=== PATIENT | female | born 2000 | race Caucasian/White ===

== ENCOUNTER 2020-05-01 23:10 | Emergency (ER) | payer SELFPAY ==
[2020-05-01 23:32] VITALS: BP 103/64; PULSE 75; RESP 14; TEMP 36.7; O2SAT 98; BMI 22.4
[2020-05-01 23:42] LABS: Basophils # 0.1 10^3/uL (0.0-0.1); Basophils % 0.4 %; Eosinophils # 0.1 10^3/uL (0.0-0.8); Eosinophils % 0.5 %; Hematocrit 40.1 % (37.0-47.0); Lymphocytes # 3.8 10^3/uL (0.8-4.8); Lymphocytes % 25.8 %; Mean Corpuscular HGB Conc 32.4 g/dL (30.0-36.0); Mean Corpuscular Hemoglobin 29.5 pg (28.0-34.0); Mean Corpuscular Volume 91.1 fL (81-99); Mean Platelet Volume 8.8 fL (7.4-10.4); Monocytes # 1.6 10^3/uL (0.2-0.9); Monocytes % 10.9 %; Neutrophils % 62.1 %; Nucleated Red Blood Cells % 0 %; Platelet Count 372 10^3/cmm (130-400); Red Cell Distribution Width 12.2 % (12.1-15.1); White Blood Count 14.7 10^3/uL (4.0-10.0)
[2020-05-01 23:56] LABS: Alanine Aminotransferase 14 U/L (0-33); Albumin Level 4.9 g/dL (3.5-5.2); Alkaline Phosphatase 76 IU/L (35-105); Anion Gap 16.4 (5-19); Aspartate Amino Transferase 17 U/L (0-32); Blood Urea Nitrogen 14 mg/dL (6-20); Calcium 9.9 mg/dL (8.5-10.5); Carbon Dioxide 26 mmol/L (22-29); Chloride 100 mmol/L (98-107); Globulin 3.4 g/dL (1.3-4.6); Glomerular Filtration Rate 90.5 mL/min (90-130); Glucose 96 mg/dL (65-115); Lipase 28 U/L (13-60); Osmolality Calculated 282 mOsm/kg (285-295); Potassium 4.4 mmol/L (3.5-5.1); Sodium 138 mmol/L (136-145); Total Protein 8.3 g/dL (6.6-8.7)
--- NOTE | 2020-05-02 02:01 | CTR_ITS ---
PROCEDURE INFORMATION: Exam: CT Abdomen And Pelvis With Contrast Exam date and time: 05/02/2020 2:02 AM Age: 20 years old Clinical indication: Abdominal pain; Localized; Right lower quadrant (rlq); Prior surgery; Surgery type: Csection; Patient HX: Rlq pain x 3 days. Elevated wbc. ; Additional info: Rq pain TECHNIQUE: Imaging protocol: Computed tomography of the abdomen and pelvis with intravenous contrast. Radiation optimization: All CT scans at this facility use at least one of these dose optimization techniques: automated exposure control; mA and/or kV adjustment per patient size (includes targeted exams where dose is matched to clinical indication); or iterative reconstruction. Contrast material: OMNI 300; Contrast volume: 95 ml; Contrast route: INTRAVENOUS (IV) ADDITIONAL STUDY INFORMATION: Total DLP (mGy-cm): 555.2 COMPARISON: No relevant prior studies available. FINDINGS: In anterior aspect right kidney there is small area of relatively low density and this is worrisome for inflammation/infection, please correlate clinically. There appears to be fullness of the cervix and ovaries, as well as small amount free fluid; findings may be due to menses. Urinary bladder is nearly collapsed. There is elongated left hepatic lobe, a developmental variant. Gallbladder is very contracted. Spleen, pancreas, left kidney, and adrenal glands appear grossly unremarkable. There is small hiatal hernia. Structure felt to represent the appendix appears grossly unremarkable. Bowel loops do not appear significantly dilated. Abdominal aorta does not appear dilated. Visualized lung bases demonstrate no significant opacification. Examination is somewhat limited without enteric contrast material. CT/CT abdomen pelvis w con* [id number] IMPRESSION: In anterior aspect right kidney there is small area of relatively low density and this is worrisome for inflammation/infection, please correlate clinically. There appears to be fullness of the cervix and ovaries, as well as small amount free fluid; findings may be due to menses. Urinary bladder is nearly collapsed. There is small hiatal hernia. Radiation Dose CTDIVOL = (mGy): DLP = 555.2 (mGy-cm)
--- NOTE | 2020-05-02 02:10 | ED_ITS ---
HPI - Abdominal Pain General: Chief Complaint: Abdominal Pain Stated Complaint: side pain Time Seen by Provider: 05/02/20 01:53 History of Present Illness: HPI narrative: Patient complains about right-sided abdominal pain for 2 3 days. Denies any nausea vomiting bladder or bowel problems pain is been constant has not improved slightly worse. Denies any fever chills. Is been normal MD elicited complaint: abdominal pain Onset (ago): day(s) Pain Consistency: constant Location: RUQ Severity: moderate Quality: aching Radiation: none Migration to: no migration Exacerbating factors: nothing Relieving factors: nothing Associated Symptoms: Denies chills, fever(s), nausea and vomiting Review of Systems Const: Denies: fever(s), chills or body aches Eyes: Denies: change in vision or blurry vision ENMT: Denies: throat pain or nasal congestion Card: Denies: chest pain or dyspnea on exertion Resp: Denies: dyspnea, productive cough or non-productive cough GI: Reports: abdominal pain; Denies: nausea or vomiting Musc: Denies: extremity pain Skin/Breast: Denies: rash Neuro: Denies: headache(s) Psych: Denies: anxiety or depression Sid/Lymph: Denies: easy bruising PFSH ED PFSH: Medical History (Updated 04/10/20 @ 11:08 by Cassandra Iverson APN, ODETTE) Anxiety with depression stopped meds in 2018 No pertinent past medical history neghx: htn,dm,thyroid,dvt/pe Surgical History (Updated 04/10/20 @ 10:51 by Cassandra Iverson APN, ODETTE) H/O section (01/27/19) Pre-E at 36 weeks--delivered in [place] History of tonsillectomy and adenoidectomy Family History Grandmother Diabetes Grandfather Hypertension Maternal grandfather Paternal grandfather Heart disease Maternal grandfather Family/Other Diabetes Maternal aunt Maternal uncle Hypertension Maternal uncle Stroke Maternal uncle Heart disease Maternal uncle Family history of thyroid problem Maternal aunt Denies family history of Colon cancer Ovarian cancer Hyperlipidemia Breast cancer Uterine cancer Social History Additional social history: - Tobacco use: Denies Alcohol use: Denies Drug use: Denies Physical Exam Const: COMMON NORMALS: no acute distress, average body habitus and patient oriented x3 HENMT: COMMON NORMALS: normocephalic HEAD & SCALP: normal to inspection and normocephalic FACE & SINUS: normal facial exam Eye: COMMON NORMALS: conjunctivae normal GENERAL EYE: appearance normal, both eyes and all related structures CONJUNCTIVA: Yes conjunctivae normal Neck/C-Spine: COMMON NORMALS: no JVD Chest: COMMONS NORMALS: normal inspection of the chest Resp: COMMON NORMALS: normal respiratory effort and clear to auscultation b ilaterally AUSCULTATION: clear to auscultation bilaterally Cardio: COMMON NORMALS: no JVD, regular rate and regular rhythm RATE: regular rate RHYTHM: regular rhythm GI: COMMON NORMALS: Normal to inspection, nondistended, normoactive bowel sounds present PALPATION: Yes Tenderness to palpation present (GI) Details: RUQ Extremity: COMMON NORMALS: normal to inspection and full ROM Neuro: COMMON NORMALS: patient oriented x3 Course Vital Signs: Vital signs: Vital Signs Temperature 98.0 F 05/01/20 23:32 Pulse Rate 75 05/01/20 23:32 Respiratory Rate 14 05/01/20 23:32 Blood Pressure 103/64 05/01/20 23:32 Pulse Oximetry 98 05/01/20 23:32 MDM - Abdominal Pain Lab Data: Labs: Lab Results 05/01/20 05/01/20 Range/Units 23:31 23:31 WBC 14.7 H (4.0-10.0) 10^3/ uL RBC 4.40 (4.1-5.3) 10^6/u L Hgb 13.0 (11.5-15.3) g/dL Hct 40.1 (37.0-47.0) % MCV 91.1 (81-99) fL MCH 29.5 (28.0-34.0) pg MCHC 32.4 (30.0-36.0) g/dL RDW 12.2 (12.1-15.1) % Plt Count 372 (130-400) 10^3/c mm MPV 8.8 (7.4-10.4) fL Neut % (Auto) 62.1 % Lymph % (Auto) 25.8 % [place] % (Auto) 10.9 % Eos % (Auto) 0.5 % Baso % (Auto) 0.4 % Neut # (Auto) 9.10 H (1.8-7.7) 10^3/u L Lymph # (Auto) 3.8 (0.8-4.8) 10^3/u L [place] # (Auto) 1.6 H (0.2-0.9) 10^3/u L Eos # (Auto) 0.1 (0.0-0.8) 10^3/u L Baso # (Auto) 0.1 (0.0-0.1) 10^3/u L Nucleated RBC % (a uto) 0 % Nucleated RBCs # 0.0 /100WBC Sodium 138 (136-145) mmol/L Potassium 4.4 (3.5-5.1) mmol/L Chloride 100 (98-107) mmol/L Carbon Dioxide 26 (22-29) mmol/L Anion Gap 16.4 (5-19) BUN 14 (6-20) mg/dL Creatinine 0.8 (0.5-0.9) mg/dL GFR Calculation 90.5 (90-130) mL/min Glucose 96 (65-115) mg/dL Calculated Osmolal ity 282 L (285-295) mOsm/k g Calcium 9.9 (8.5-10.5) mg/dL Total Bilirubin 1.0 (0.15-1.2) mg/dL AST 17 (0-32) U/L ALT 14 (0-33) U/L Alkaline Phosphata se 76 (35-105) IU/L Total Protein 8.3 (6.6-8.7) g/dL Albumin 4.9 (3.5-5.2) g/dL Globulin 3.4 (1.3-4.6) g/dL Lipase 28 (13-60) U/L Discharge Plan Discharge Prescriptions: No Action No Known Home Medications RF: 0 Coding Level of Care Code ED Presentation Designer for Chg Joseph
[2020-05-02 02:27] LABS: HCG Qualitative Urine. Negative (Negative); Urine Color Yellow (Yellow)
[2020-05-02 02:28] LABS: Add Urine Culture? Yes; Add Urine Microscopic? YES; Bacteria Urine 3+; Bilirubin Urine Neg (NEGATIVE); Blood Urine 2+ (Negative); Glucose Urine UA Norm (Normal); Ketones Urine Negative (Negative); Leukocyte Esterase Urine 2+ (Negative); Nitrate Urine Positive (Negative); Protein Urine Trace (Negative); Squamous Epithelial Cell Urine 0-4 (0-5); Urine Appearance Cloudy (CLEAR); Urobilinogen Urine Norm (Negative); WBC Urine >100 /hpf (0-5); pH Urine 5 (5-7)
[2020-05-02] MEDS: iohexol 300 mg/mL 100 mL Btl IV (02:44)
[2020-05-02] MEDS: cefTRIAXone 1,000 mg SDV 1000 MG IM (03:06)
[2020-05-02 03:25] VITALS: BP 99/61
== END 2020-05-02 03:35 | disposition home or self-care (01) ==
PROVIDERS: Emergency Medicine; Emergency Provider Nurse Practitioner Family
DX: R10.9 Unspecified abdominal pain (principal)
CPT/HCPCS: 12345; 36415; 74177; 80053; 81001; 81003; 81025; 83690; 85025; 87077; 87086; 87186; 96372; 99281; 99283; J0696; Q9967

== ENCOUNTER 2020-08-12 00:29 | Emergency (ER) | payer SELFPAY ==
[2020-08-12 00:41] VITALS: BP 117/73; PULSE 95; RESP 18; TEMP 36.8; O2SAT 98
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
[2020-08-12] MEDS: acetaminophen 325 mg Tablet 650 MG PO (02:35)
[2020-08-12 03:12] VITALS: BP 120/70; PULSE 82; RESP 18; O2SAT 98
[2020-08-12 03:14] VITALS: BP 120/70; PULSE 82; RESP 18; O2SAT 98
== END 2020-08-12 03:14 | disposition home or self-care (01) ==
PROVIDERS: Emergency Provider Nurse Practitioner Family
DX: S39.012A Strain of muscle, fascia and tendon of lower back, initial encounter (principal); V89.2XXA Person injured in unspecified motor-vehicle accident, traffic, initial encounter
CPT/HCPCS: 12345; 72072; 81025; 99281; 99283

== ENCOUNTER → 2021-08-29 11:50 | Outpatient (BNVA) | payer MEDICAID, SELFPAY | PROVIDERS: Visit Provider Emergency Medicine | DX: Z20.822 Contact with and (suspected) exposure to COVID-19 (principal) | CPT/HCPCS: 87635 ==

== ENCOUNTER → 2022-05-16 15:36 | Outpatient (BNVA) | payer MEDICAID, SELFPAY | PROVIDERS: Visit Provider Emergency Medicine | DX: N39.0 Urinary tract infection, site not specified (principal) | CPT/HCPCS: 81000 ==

== ENCOUNTER → 2023-05-13 10:13 | Outpatient (BNVA) | payer MEDICAID, SELFPAY | PROVIDERS: Visit Provider Emergency Medicine | DX: R11.2 Nausea with vomiting, unspecified (principal); R19.7 Diarrhea, unspecified; R10.9 Unspecified abdominal pain; R11.0 Nausea; N39.0 Urinary tract infection, site not specified; N30.01 Acute cystitis with hematuria | CPT/HCPCS: 81000; 87077; 87086; 87184 ==

== ENCOUNTER → 2023-07-21 10:21 | Outpatient (BNVA) | payer MEDICAID, SELFPAY | PROVIDERS: PCP Family Medicine; Visit Provider Nurse Practitioner Family | DX: S99.912A Unspecified injury of left ankle, initial encounter (principal); X58.XXXA Exposure to other specified factors, initial encounter | CPT/HCPCS: 73610 ==